=== PATIENT | female | born 1945 | race Caucasian/White ===

== ENCOUNTER → 2017-02-21 | Outpatient (CLI) | payer MEDICARE ==
[2017-02-21 09:58] LABS: ALT 40 U/L (9-52); AST 33 U/L (14-36); Alkaline Phosphatase 101 U/L (38-126); Anion Gap 15 mmol/L; Blood Urea Nitrogen 15 mg/dL (7-17); Calcium 9.9 mg/dL (8.4-10.2); Carbon Dioxide 19 mmol/L (22-30); Chloride 105 mmol/L (98-107); Cholesterol 169 mg/dL (<200); Glucose 180 mg/dL (74-99); HDL Cholesterol 67 mg/dL (40-60); Non-African American GFR(MDRD) >60 (>60 ml/min/1.73 sqM); Potassium 5.4 mmol/L (3.5-5.1); Sodium 139 mmol/L (137-145); Total Bilirubin 0.5 mg/dL (0.2-1.3); Total Protein 7.7 g/dL (6.3-8.2); Triglycerides 207 mg/dL (<150)
[2017-02-21 12:44] LABS: Hemoglobin A1C 7.3 % (4.2-6.1)
== END ==
LOC: LABWHC1 09:10
PROVIDERS: ATTEND Internal Medicine Endocrinology, Diabetes & Metabolism
DX: E05.00 Thyrotoxicosis with diffuse goiter without thyrotoxic crisis or storm (principal); E11.9 Type 2 diabetes mellitus without complications; E78.2 Mixed hyperlipidemia
CPT/HCPCS: 36415; 80053; 80061; 83036; 84439; 84443

== ENCOUNTER → 2017-03-25 | Outpatient (CLI) | payer MEDICARE ==
[2017-03-25 10:44] LABS: Anion Gap 12 mmol/L; Blood Urea Nitrogen 16 mg/dL (7-17); Calcium 9.9 mg/dL (8.4-10.2); Carbon Dioxide 21 mmol/L (22-30); Chloride 104 mmol/L (98-107); Glucose 154 mg/dL (74-99); Non-African American GFR(MDRD) >60 (>60 ml/min/1.73 sqM); Sodium 137 mmol/L (137-145)
== END | disposition home or self-care (01) ==
LOC: LABWHC1 10:06
PROVIDERS: ATTEND Internal Medicine Endocrinology, Diabetes & Metabolism
DX: E78.5 Hyperlipidemia, unspecified (principal)
CPT/HCPCS: 36415; 80048

== ENCOUNTER → 2017-06-12 | Outpatient (CLI) | payer MEDICARE ==
[2017-06-12 11:00] LABS: ALT 50 U/L (9-52); AST 32 U/L (14-36); Alkaline Phosphatase 101 U/L (38-126); Anion Gap 14 mmol/L; Blood Urea Nitrogen 14 mg/dL (7-17); Calcium 9.6 mg/dL (8.4-10.2); Carbon Dioxide 21 mmol/L (22-30); Chloride 105 mmol/L (98-107); Cholesterol 154 mg/dL (<200); Glucose 155 mg/dL (74-99); HDL Cholesterol 64 mg/dL (40-60); Non-African American GFR(MDRD) >60 (>60 ml/min/1.73 sqM); Potassium 4.9 mmol/L (3.5-5.1); Sodium 140 mmol/L (137-145); Total Bilirubin 0.4 mg/dL (0.2-1.3); Total Protein 7.1 g/dL (6.3-8.2); Triglycerides 190 mg/dL (<150)
[2017-06-12 12:07] LABS: Hemoglobin A1C 6.6 % (4.2-6.1)
== END | disposition home or self-care (01) ==
LOC: LABWHC1 09:15
PROVIDERS: ATTEND Internal Medicine Endocrinology, Diabetes & Metabolism
DX: E11.9 Type 2 diabetes mellitus without complications (principal); E03.9 Hypothyroidism, unspecified; E55.9 Vitamin D deficiency, unspecified; E78.2 Mixed hyperlipidemia; E87.5 Hyperkalemia
CPT/HCPCS: 36415; 80053; 80061; 82043; 82306; 82570; 83036; 84439; 84443

== ENCOUNTER → 2017-10-03 | Outpatient (CLI) | payer MEDICARE ==
[2017-10-03 10:57] LABS: ALT 52 U/L (9-52); AST 32 U/L (14-36); Alkaline Phosphatase 91 U/L (38-126); Anion Gap 14 mmol/L; Blood Urea Nitrogen 13 mg/dL (7-17); Carbon Dioxide 20 mmol/L (22-30); Chloride 105 mmol/L (98-107); Cholesterol 170 mg/dL (<200); Glucose 177 mg/dL (74-99); HDL Cholesterol 71 mg/dL (40-60); Non-African American GFR(MDRD) >60 (>60 ml/min/1.73 sqM); Potassium 5.3 mmol/L (3.5-5.1); Sodium 139 mmol/L (137-145); Total Bilirubin 0.4 mg/dL (0.2-1.3); Total Protein 7.7 g/dL (6.3-8.2)
[2017-10-03 18:34] LABS: Urine Creatinine 124.2 mg/dL
== END | disposition home or self-care (01) ==
LOC: LABWHC1 09:21
PROVIDERS: ATTEND Internal Medicine Endocrinology, Diabetes & Metabolism
DX: E11.9 Type 2 diabetes mellitus without complications (principal); E03.9 Hypothyroidism, unspecified
CPT/HCPCS: 36415; 80053; 80061; 82043; 82306; 82570; 83036; 84439; 84443

== ENCOUNTER → 2018-03-17 | Outpatient (CLI) | payer MEDICARE ==
--- NOTE | 2018-03-18 08:35 | BD ---
EXAMINATION TYPE: MG DEXA axial skeleton. DATE OF EXAM: 03/17/2018 COMPARISON: 2002 CLINICAL HISTORY: asymptomatic menopausal state Height: 5'3 Weight: 213 FRAX RISK QUESTIONS: Alcohol (3 or more units per day): no Family History (Parent hip fracture): no Glucocorticoids (More than 3mos): no (Ex: prednisone, prednisolone, methylprednisolone, dexamethasone, and hydrocortisone). History of Fracture in Adulthood: yes Secondary Osteoporosis: 1. Type 1 Diabetes: no 2. Hyperthyroidism: no 3. Menopause before 45: no 4. Malnutrition: no 5. Chronic liver disease: no Rheumatoid Arthritis: no Current Tobacco Use: no RISK FACTORS HISTORY OF: Surgery (/left)/hip When: total 2009 Family History of Osteoporosis: no Active: no Postmenopausal woman: MEDICATIONS: Thyroid Medications: Which medication: Levothyroxine How Lon Additional Medications: blood pressure, cholesterol, diabetes 2, glaucoma Additional History: EXAM MEASUREMENTS: Bone mineral densitometry was performed using the [employer]. Bone mineral density as measured about the Lumbar spine is: ----- L1-L4(G/cm2): 1.575 T Score Values are as follows: ----- L2: 3.8 ----- L3: 4.4 ----- L4: 3.8 ----- L1-L4:3.3 Bone mineral density has: Increased 37.7% since study of: 02/11/2003 Bone mineral density about the R hip (g/cm2): 0.806 T Score values are as follows: -----R Neck: -1.8 -----R Total: -1.6 Bone mineral density has: Decreased -1.5% since study of: 02/11/2003 IMPRESSION: Findings compatible with osteopenia NOTE: T-SCORE=SD OF THE YOUNG ADULT MEAN.
== END | disposition home or self-care (01) ==
LOC: RADBDWWP 15:29
PROVIDERS: ATTEND Family Medicine
DX: Z78.0 Asymptomatic menopausal state (principal)
CPT/HCPCS: 77080

== ENCOUNTER → 2018-03-19 | Outpatient (CLI) | payer MEDICARE ==
[2018-03-19 10:04] LABS: Basophils % (A) 1 %; Eosinophils # (A) 0.2 k/uL (0-0.7); Eosinophils % (A) 3 %; HCT 45.1 % (34.0-46.0); Lymphocytes # (A) 1.7 k/uL (1.0-4.8); Lymphocytes % (A) 24 %; MCH 28.4 pg (25.0-35.0); MCV 91.6 fL (80.0-100.0); Mean Platelet Volume 7.2; Monocytes # (A) 0.3 k/uL (0-1.0); Monocytes % (A) 5 %; Neutrophils # (A) 4.8 k/uL (1.3-7.7); Neutrophils % (A) 66 %; Platelet Count 281 k/uL (150-450); RBC 4.93 m/uL (3.80-5.40); RDW 13.9 % (11.5-15.5); WBC 7.2 k/uL (3.8-10.6)
[2018-03-19 10:21] LABS: ALT 43 U/L (9-52); AST 33 U/L (14-36); Albumin 4.3 g/dL (3.5-5.0); Alkaline Phosphatase 88 U/L (38-126); Anion Gap 16 mmol/L; Blood Urea Nitrogen 16 mg/dL (7-17); Calcium 9.7 mg/dL (8.4-10.2); Carbon Dioxide 20 mmol/L (22-30); Chloride 104 mmol/L (98-107); Cholesterol 145 mg/dL (<200); Glucose 155 mg/dL (74-99); HDL Cholesterol 62 mg/dL (40-60); LDL Cholesterol,Calculated 48 mg/dL (0-99); Potassium 4.4 mmol/L (3.5-5.1); Sodium 140 mmol/L (137-145); Total Bilirubin 0.4 mg/dL (0.2-1.3); Total Protein 6.7 g/dL (6.3-8.2); Triglycerides 173 mg/dL (<150)
[2018-03-19 10:35] LABS: T4, Free (Free Thyroxine) 1.27 ng/dL (0.78-2.19)
[2018-03-19 18:51] LABS: Hemoglobin A1C 6.9 % (4.0-6.0)
== END | disposition home or self-care (01) ==
LOC: LABWHC1 09:09
PROVIDERS: ATTEND Internal Medicine Endocrinology, Diabetes & Metabolism
DX: E78.2 Mixed hyperlipidemia (principal); E11.42 Type 2 diabetes mellitus with diabetic polyneuropathy; I10 Essential (primary) hypertension; E03.9 Hypothyroidism, unspecified; E55.9 Vitamin D deficiency, unspecified
CPT/HCPCS: 36415; 80053; 80061; 83036; 84439; 84443; 85025

== ENCOUNTER → 2018-09-29 | Outpatient (CLI) | payer MEDICARE ==
[2018-09-29 17:00] LABS: Albumin 4.7 g/dL (3.80-4.90); Albumin/Globulin Ratio 2.35 (1.20-2.10); Anion Gap 11.5 mmol/L (4.00-12.00); Calcium 9.5 mg/dL (8.7-10.3); Carbon Dioxide 21.5 mmol/L (21.6-31.8); Potassium 4.9 mmol/L (3.5-5.5); Total Bilirubin 0.5 mg/dL (0.3-1.2); Total Protein 6.7 g/dL (6.2-8.2)
[2018-09-29 17:08] LABS: T4, Free (Free Thyroxine) 1.6 ng/dL (0.80-1.80)
== END | disposition home or self-care (01) ==
LOC: LABWHC1 09:24
PROVIDERS: ATTEND Internal Medicine Endocrinology, Diabetes & Metabolism
DX: E78.2 Mixed hyperlipidemia (principal); E03.9 Hypothyroidism, unspecified; E11.9 Type 2 diabetes mellitus without complications; E55.9 Vitamin D deficiency, unspecified; I10 Essential (primary) hypertension; M89.9 Disorder of bone, unspecified
CPT/HCPCS: 36415; 80053; 80061; 82043; 82570; 83036; 84439; 84443

== ENCOUNTER → 2019-03-25 | Outpatient (CLI) | payer MEDICARE ==
[2019-03-25 16:26] LABS: Albumin 4.5 g/dL (3.80-4.90); Albumin/Globulin Ratio 2.37 (1.60-3.17); Anion Gap 12.8 mmol/L (4.00-12.00); Calcium 9.3 mg/dL (8.7-10.3); Carbon Dioxide 20.2 mmol/L (21.6-31.8); Globulin 1.9 g/dL (1.6-3.3); Potassium 4.5 mmol/L (3.5-5.5); Total Bilirubin 0.4 mg/dL (0.3-1.2); Total Protein 6.4 g/dL (6.2-8.2)
[2019-03-25 16:36] LABS: T4, Free (Free Thyroxine) 1.3 ng/dL (0.80-1.80)
== END ==
LOC: LABWHC1 09:05
PROVIDERS: ATTEND Internal Medicine Endocrinology, Diabetes & Metabolism
DX: E11.9 Type 2 diabetes mellitus without complications (principal); E03.9 Hypothyroidism, unspecified; E78.2 Mixed hyperlipidemia; E55.9 Vitamin D deficiency, unspecified
CPT/HCPCS: 36415; 80053; 80061; 83036; 84439; 84443

== ENCOUNTER → 2019-09-10 | Outpatient (CLI) | payer MEDICARE ==
[2019-09-10 15:46] LABS: African American GFR (CKD) 98.2 (60.0-200.0); Albumin 4.5 g/dL (3.80-4.90); Albumin/Globulin Ratio 2.25 (1.60-3.17); Anion Gap 11.5 mmol/L (4.00-12.00); BUN/Creat Ratio 24.29 Ratio (12.00-20.00); Calcium 9.5 mg/dL (8.7-10.3); Carbon Dioxide 23.5 mmol/L (21.6-31.8); Chol/HDL Ratio 2.41; LDL Cholesterol,Calculated 61.2 mg/dL (0.0-131.0); Total Bilirubin 0.4 mg/dL (0.2-1.2); Total Protein 6.5 g/dL (6.2-8.2); VLDL Calculation 24.8 mg/dL (5.00-40.00)
[2019-09-10 15:53] LABS: T4, Free (Free Thyroxine) 1.3 ng/dL (0.80-1.80)
[2019-09-10 17:36] LABS: Hemoglobin A1C 6.8 % (4.0-6.0)
== END | disposition home or self-care (01) ==
LOC: LABWHC1 08:49
PROVIDERS: ATTEND Internal Medicine Endocrinology, Diabetes & Metabolism
DX: E11.9 Type 2 diabetes mellitus without complications (principal); E03.9 Hypothyroidism, unspecified; E55.9 Vitamin D deficiency, unspecified; E78.2 Mixed hyperlipidemia
CPT/HCPCS: 36415; 80053; 80061; 82043; 82306; 82570; 83036; 84439; 84443

== ENCOUNTER 2020-06-19 07:47 | Emergency (ER) | payer MEDICARE, OTHER ==
[2020-06-19] MEDS ORDERED: DIPH,PERTUS(ACELL)TETVAC-LF 0.5 ML VIAL IM ONE (07:58)
[2020-06-19] MEDS ORDERED: TOPICAL SKIN ADHESIVE 1 EACH AMP TOPICAL ONE (07:58)
[2020-06-19 08:07] VITALS: TEMP 97.7
--- NOTE | 2020-06-19 09:06 | ED ---
Fall HPI - General Source: patient Mode of arrival: wheelchair <Clary Aguilar - Last Filed: 06/19/20 09:48> <MadiJohanna hansen Lani - Last Filed: 06/20/20 15:54> - General Chief Complaint: Fall Stated Complaint: Fall, facial injury Time Seen by Provider: 06/19/20 07:53 - History of Present Illness Initial Comments: 74 yo female presenting today for chief complaint of trip and fall. Patient states she was here at the hospital volunteering when she tripped falling forward striking her head. Patient does endorse some neck pain she states that she has pain in the left side of her forehead and was bleeding. Patient denies loss of consciousness she denies anticoagulation therapy. Patient denies any nausea vomiting headache visual changes weakness of the upper or lower extremities. Admits to pain the left lateral, knees was weight bearing and ambulating after the falls. States it is just sore. Denies ankle or hip pain denies low back pain or mid back pain. Denies right LE pain. Denies UE pain. Denies trauma to chest or abdomen. Patient has no additional complaint. Appears well on arrival. As soon as I heard patient was complaining of neck pain, requested a c-collar be placed. (Clary Aguilar) - Related Data Home Medications Medication Instructions Recorded Confirmed Atorvastatin Calcium [Lipitor] 20 mg PO HS 09/27/14 11/22/16 Dorzolamide HCl/Timolol Maleat 1 drop BOTH EYES BID 09/27/14 11/22/16 [Dorzolamide-Timolol Eye Drops] Exenatide [Byetta] 10 mcg SQ BID 09/27/14 11/22/16 Ezetimibe [Zetia] 10 mg PO HS 09/27/14 11/22/16 Metoprolol Succinate (ER) [Toprol 100 mg PO DAILY 09/27/14 11/22/16 XL] metFORMIN HCL [Metformin HCl ER] 500 mg PO AC-SUPPER 09/27/14 11/22/16 Glimepiride [Amaryl] 0.5 mg PO AC-SUPPER 03/17/15 11/22/16 Levothyroxine Sodium [Levoxyl] 75 mcg PO DAILY 03/17/15 11/22/16 Multivitamins, Thera [Multivitamin 1 tab PO DAILY 03/21/15 11/22/16 (formulary)] Diclofenac Sodium [Voltaren] 75 mg PO BID 11/22/16 11/22/16 Solifenacin Succinate [Vesicare] 5 mg PO DAILY 11/22/16 11/22/16 Previous Rx's Medication Instructions Recorded amLODIPine BESYLATE/BENAZEPRIL 1 tab PO HS #1 03/23/15 [Amlodipine-Benazepril 5-10 mg] Allergies Allergy/AdvReac Type Severity Reaction Status Date / Time iodine AdvReac Nausea & Verified 06/19/20 08:00 Vomiting shellfish derived [Shellfish] AdvReac Nausea & Verified 06/19/20 08:00 Vomiting Review of Systems ROS Other: All systems not noted in ROS Statement are negative. <Clary Aguilar - Last Filed: 06/19/20 09:48> ROS Other: All systems not noted in ROS Statement are negative. <Johanna Lopez - Last Filed: 06/20/20 15:54> ROS Statement: Those systems with pertinent positive or pertinent negative responses have been documented in the HPI. Past Medical History Past Medical History: Diabetes Mellitus, Hyperlipidemia, Hypertension, Thyroid Disorder Additional Past Medical History / Comment(s): TRIGEMINAL NEURALGIA. GLA History of Any Multi-Drug Resistant Organisms: None Reported Past Surgical History: Joint Replacement, Tonsillectomy Additional Past Surgical History / Comment(s): BILAT CATARACTS REMOVED. RT TKA. LT EMILY. BALLOON COMPRESSION OF TRIGEMINAL NERVE-1979. POSTERIOR CRANIOTOMY VASCULAR DECOMPRESSION,. VAGOTOMY,. PYLOROPLASTY Past Anesthesia/Blood Transfusion Reactions: No Reported Reaction Past Psychological History: No Psychological Hx Reported Smoking Status: Never smoker Past Alcohol Use History: Rare Past Drug Use History: None Reported - Past Family History Mother Family Medical History: Cancer Sister(s) Family Medical History: Cancer <Clary Aguilar - Last Filed: 06/19/20 09:48> General Exam Limitations: no limitations <Clary Aguilar - Last Filed: 06/19/20 09:48> - General Exam Comments Initial Comments: General: The patient is awake and alert, in no distress Eye: +3 mm right pupil difficult to see the left pupil secondary to corneal irregularity but appears reactive round,, extra-ocular movements are intact. No nystagmus. There is normal conjunctiva bilaterally. No signs of icterus. Ears, nose, mouth and throat: There are moist mucous membranes and no oral lesions. No raccoon or Chung sign Neck: The neck is supple, there is no tenderness or JVD. Midline tenderness to palpation of the cervical spine midline. Cardiovascular: There is a regular rate and rhythm. No murmur, rub or gallop is appreciated. Respiratory: Lungs are clear to auscultation, respirations are non-labored, breath sounds are equal. No wheezes, stridor, rales, or rhonchi. Gastrointestinal: Soft, non-distended, non-tender abdomen without masses or organomegaly noted. There is no rebound or guarding present. No CVA tenderness. Musculoskeletal: Pain to palpation of the left anterior knww. extensor mechanism intact. Normal ROM of the UE and LE b/l, pain to ROm with left knee mild. weight bearing. Strength 5/5 of the UE and LE equal b/l. Sensation intact of the UE and LE b/l. Radial and DP pulses equal bilaterally 2+. Neurological: A&O x 3. CN II-XII intact, There are no obvious motor or sensory deficits. Coordination appears grossly intact. Speech is normal. Skin: Skin is warm and dry and no rashes.. Large hematoma to the left side of the forehead with a very small bleeding superficial laceration. Psychiatric: Cooperative, appropriate mood & affect, normal judgment. (Clary Aguilar) Course Vital Signs 06/19/20 06/19/20 08:00 10:28 Temperature 97.7 F Pulse Rate 100 86 Respiratory 18 16 Rate Blood Pressure 148/82 132/76 O2 Sat by Pulse 95 99 Oximetry Medical Decision Making <Clary Aguilar - Last Filed: 06/19/20 09:48> <Johanna Lopez - Last Filed: 06/20/20 15:54> - Medical Decision Making 74 or female presenting for fall endorses for head pain neck pain placed in c- collar. No focal neurological deficits. No weakness of the UE. Patient has very very small point sized laceration in hematoma, closed with topical adhesive. Patient has a lucency at C2 cannot rule out type III fracture per radiologist. Patient will be transferred to facility with neurosurgery. Patient is agreeable to this care plan and transfer via EMS. Patient case accepted by Dr. Lazaro, at [facility]. (Clary Aguilar) I was available for consultation in the emergency department. The history and physical exam were done by the midlevel provider. I was consulted for this pat ients care. I reviewed the case with the midlevel provider and based on their presentation of the patient, I agree with the assessment, medical decision making and plan of care as documented. Chart was dictated using [employer] dictation software. Attempts were made to correct any dictation errors however some typographical errors may persist. Patient was seen during a national state of emergency due to the Covid-19 pandemic. (Johanna Lopez) Disposition Is patient prescribed a controlled substance at d/c from ED?: No Time of Disposition: 09:20 - Out of Hospital Transfer - Req. Specs Out of Hospital Transfer - Requested Specifics: Other Emergency Center ([facility] <Clary Aguilar - Last Filed: 06/19/20 09:48> <Johanna Lopez - Last Filed: 06/20/20 15:54> Clinical Impression: Fall, Traumatic hematoma of forehead, Abrasion of forehead, C2 cervical fracture, Neck pain Disposition: OTHER INSTITUTION NOT DEFINED Condition: Stable Referrals: Tod Del Valle MD [Primary Care Provider] - 1-2 days
--- NOTE | 2020-06-19 09:07 | CT ---
EXAMINATION TYPE: CT brain kamilleine wo con DATE OF EXAM: 06/19/2020 COMPARISON: None HISTORY: Fall with facial injury CT DLP: [address] of the brain was performed. The ventricles, basal cisterns and sulci overlying the cerebral convexities demonstrate minimal enlar gement. There is no evidence for intracranial hemorrhage or sulcal effacement. There is decreased attenuatio n about the periventricular white matter and deep white matter of both cerebral hemispheres, compatib le with chronic small vessel ischemia. No mass effects are seen. If symptoms persist consider MRI. Left occipital craniotomy changes. Left frontal scalp hematoma noted. Hyperostosis frontalis interna. IMPRESSION: 1. Age related atrophic and chronic small vessel ischemic change without acute intracranial process seen at this time. CT Cervical Spine: Unenhanced CT of the cervical spine was performed with bone and soft tissue window settings submitted . Coronal and sagittal reconstruction is obtained. There is streak artifact coursing through the C2 level. Noted on the sagittal data set however is cor tical lucency noted best on image 46 on the odontoid with additional cortical lucency identified on c oronal images 23 and 24. Type III odontoid fracture is difficult to exclude. There is a moderate to s evere multilevel degenerative disc disease. No additional fractures are seen. There is anterior sublu xation of C4 on C5 measuring 3.5 mm. This is related to suggest severe degenerative change of the cer vical apophyseal joints. Scattered degenerative disc disease and spondylosis. Biapical scarring. IMPRESSION: 1. I cannot exclude a type III C2 fracture as discussed above. As noted there is streak artifact cour sing through this region limiting evaluation however cortical lucency is identified in 2 planes. Discussed with the physician customer support assistant at the time of exam completion.
--- NOTE | 2020-06-19 09:27 | XR ---
EXAMINATION TYPE: XR knee complete LT DATE OF EXAM: 06/19/2020 COMPARISON: NONE HISTORY: Pain TECHNIQUE: Three views are submitted. FINDINGS: Postoperative changes. There is soft tissue edema anteriorly. No acute fracture or dislocation. Vascu lar calcifications noted. IMPRESSION: 1. Soft tissue edema and postoperative changes.
[2020-06-19 10:29] VITALS: BP 132/76; PULSE 86; RESP 16
== END 2020-06-19 10:28 | disposition other institution (70) ==
LOC: EC 07:47
DX: S12.100A Unspecified displaced fracture of second cervical vertebra, initial encounter for closed fracture (principal); S00.83XA Contusion of other part of head, initial encounter; M25.562 Pain in left knee; E11.9 Type 2 diabetes mellitus without complications; E78.5 Hyperlipidemia, unspecified; I10 Essential (primary) hypertension; E07.9 Disorder of thyroid, unspecified; Z79.84 Long term (current) use of oral hypoglycemic drugs; Z79.890 Hormone replacement therapy; Z79.899 Other long term (current) drug therapy; Z98.42 Cataract extraction status, left eye; Z98.41 Cataract extraction status, right eye; Z96.651 Presence of right artificial knee joint; Z96.642 Presence of left artificial hip joint; Z23 Encounter for immunization; Z91.041 Radiographic dye allergy status; Z91.013 Allergy to seafood; W01.10XA Fall on same level from slipping, tripping and stumbling with subsequent striking against unspecified object, initial encounter; Y92.239 Unspecified place in hospital as the place of occurrence of the external cause
CPT/HCPCS: 73562; 72125; 70450; 90715; 90471; 99284; L0120 ×2

== ENCOUNTER → 2020-08-01 | Outpatient (CLI) | payer MEDICARE ==
--- NOTE | 2020-08-01 10:59 | CT ---
EXAMINATION TYPE: CT cervical spine wo con DATE OF EXAM: 08/01/2020 COMPARISON: 06/19/2020 HISTORY: 06/19/2020 CT DLP: 417.9 mGycm CONTRAST: None CT of the cervical spine is performed in the axial plane at 2 mm thick sections. Reconstructed image s in the coronal, and sagittal plane are reviewed on the computer. There is an obvious lucency to the base of the dens. There appears to be nonunion at this time. Findi ngs compatible with an incompletely healed dens fracture. There is a lucency within the right pars region of C1. This may be a healing fracture as well. A seco nd ring fracture however is not identified. There is minimal anterolisthesis of C4 anteriorly on C5, present previously. There is loss of disc height C4-5 C5-6 C6-7. Posterior endplate spurring is noted C4-5 may be a minim al degree at C5-6. Vertebral body heights are preserved. No spinal canal stenosis is evident Foraminal stenosis is present on the right at C5-6. Milder foraminal narrowing may be present from un covertebral joint hypertrophy. Note is made of a punctate density at the left posterior apex measuring 0.3 cm. Series 4 image 78. Th is was present previously and is stable. Peripheral punctate nodularity is again evident at the poste rior medial right apex series 4 image 78. IMPRESSIONS: 1. Incomplete healing of the base of the dens fracture and possible fracture right C1 pars region. 2. No shift of the fracture fragments is evident. 3. Grade 1 spondylolisthesis of C4 anteriorly on C5, stable from comparison. 4. Degenerative disc changes mid cervical spine. 5. Punctate nodular density left lung apex.
== END | disposition home or self-care (01) ==
LOC: RADCTMAIN 09:05
PROVIDERS: ATTEND Nurse Practitioner Family
DX: M43.12 Spondylolisthesis, cervical region (principal); M50.30 Other cervical disc degeneration, unspecified cervical region; S12.120 Other displaced dens fracture
CPT/HCPCS: 72125

== ENCOUNTER → 2021-04-13 | Outpatient (CLI) | payer MEDICARE ==
[2021-04-13 15:38] LABS: African American GFR (CKD) 101.9 (60.0-200.0); Anion Gap 10.2 mmol/L (4.00-12.00); BUN/Creat Ratio 18.33 Ratio (12.00-20.00); Calcium 9.2 mg/dL (8.7-10.3); Carbon Dioxide 22.8 mmol/L (21.6-31.8); LDL Cholesterol,Calculated 38.4 mg/dL (0.0-131.0); Non-African American GFR(CKD) 87.9 (60.0-200.0); Potassium 4.9 mmol/L (3.5-5.5); VLDL Calculation 24.6 mg/dL (5.00-40.00)
[2021-04-13 15:47] LABS: T4, Free (Free Thyroxine) 1.2 ng/dL (0.80-1.80)
[2021-04-13 17:45] LABS: Hemoglobin A1C 6.6 % (4.0-6.0)
== END | disposition home or self-care (01) ==
LOC: LABWHC1 09:41
PROVIDERS: ATTEND Internal Medicine
DX: E11.9 Type 2 diabetes mellitus without complications (principal); E03.9 Hypothyroidism, unspecified; E55.9 Vitamin D deficiency, unspecified; Z20.9 Contact with and (suspected) exposure to unspecified communicable disease
CPT/HCPCS: 36415; 80048; 80061; 82306; 83036; 84439; 84443; 86803

== ENCOUNTER → 2021-07-11 | Outpatient (CLI) | payer MEDICARE ==
[2021-07-11 14:01] VITALS: BP 118/76; PULSE 92; RESP 18; TEMP 98.3
--- NOTE | 2021-07-11 14:03 | P.PAINCN ---
History of Present Illness - Reason for Consult Consult date: 07/11/21 - History of Present Illness This is a 75-year-old patient referred by Dr. Winn with a chief complaint of chronic pain in the low back. Has had RFA with Dr Hernandez in 08/2019 with > 80% relief which has lasted up until about a month ago. Dr Pa torres did an caudal JENN on 04/2021 with 100% relief of her leg pain but her back pain is now back. Pain is located in the low back with no radiation to lower extremities. She is significant stiffness in the low back worse in the morning and difficulty rising from a seated position. Pain is described as dull aching constant throughout the day. Made worse with activity and helped with her procedures that she had in the past as well as occasional tramadol. She also takes Celebrex 200 mg twice a day as needed. Physical therapy in the past which was marginally helpful but overall her radio frequency ablations and epidurals have been the most helpful thing for her. Patient denies adverse drug effects from medications. Patient also denies new- onset weakness, bowel/bladder incontinence, or any other signs or symptoms of cauda equina syndrome. There are no signs of acute intoxication, and no indications of medication diversion or overuse. In addition to above, 13-point review of systems is also negative for chest pain, shortness of breath, changes in vision, changes in hearing, new onset weakness, abdominal pain, diarrhea, extreme fatigue, malaise, fever, skin changes, homicidal or suicidal ideation, or bowel or bladder incontinence. Physical exam: Vital Signs: Reviewed in EMR GENERAL: Well appearing, in no acute distress PSYCH: Mood and affect is appropriate. Awake, alert, and oriented SKIN: Skin color, texture, turgor normal, no rashes or lesions HEENT: Normocephalic, atraumatic. EOM intact CV: No pedal edema RESP: Respirations are unlabored, no audible wheezing GI: Abdomen non-distended MUSCULOSKELETAL: 3/5 plantarflexion bilaterally. Otherwise intact. No atrophy or tone abnormalities are noted. Lumbar spine: Straight leg raising in the sitting position is negative for radicular pain. pain to palpation over the lumbar spine and paraspinous muscles positive for pain with facet loading and back extension/rotation. Intact flexion, significantly decreased extension Extremities: Peripheral joint ROM is full and pain free without obvious instability or laxity in all four extremities. No edema or skin discolorations noted. Gait: Gait is normal NEUR: Bilateral upper and lower extremity coordination and muscle stretch reflexes are physiologic and symmetric. Negative clonus. No loss of sensation is noted. Cranial nerves are grossly intact. Imaging: Lumbar MRI Show severe degenerative disc disease from L1 through L5. At L2-3 there is moderately severe stenosis of the spinal canal. At L4-L5 there is moderately severe stenosis of the spinal canal with severe right and moderate left stenosis. There is also severe bilateral facet joint arthropathy at this level. L5-S1 there is moderate bilateral facet joint arthropathy and severe left and moderate right neural foraminal stenosis. Assessment: 1. Lumbar spondylosis Plan: - Schedule bilateral L4-L5 and L5-S1 radiofrequency ablation. In the future if she is having continued leg pain we can repeat caudal epidural steroid injection for her. - we also gave her a flyer for some home exercises she can work on at home. I spent 44 minutes on patient care today. The time was used to review medical records including relevant urine studies and prescription history (MAPs), review of the available imaging, evaluation and examination the patient, coordination of care at the medical staff and if applicable referring physicians, as well as creation of the medical record. Past Medical History Past Medical History: Diabetes Mellitus, Hyperlipidemia, Hypertension, Thyroid Disorder Additional Past Medical History / Comment(s): TRIGEMINAL NEURALGIA. GLA History of Any Multi-Drug Resistant Organisms: None Reported Past Surgical History: Joint Replacement, Tonsillectomy Additional Past Surgical History / Comment(s): BILAT CATARACTS REMOVED. RT TKA. LT EMILY. BALLOON COMPRESSION OF TRIGEMINAL NERVE-1979. POSTERIOR CRANIOTOMY VASCULAR DECOMPRESSION,. VAGOTOMY,. PYLOROPLASTY Past Anesthesia/Blood Transfusion Reactions: No Reported Reaction Past Psychological History: No Psychological Hx Reported Smoking Status: Never smoker Past Alcohol Use History: Rare Past Drug Use History: None Reported - Past Family History Mother Family Medical History: Cancer Sister(s) Family Medical History: Cancer Medications and Allergies Home Medications Medication Instructions Recorded Confirmed Type Atorvastatin Calcium [Lipitor] 20 mg PO HS 09/27/14 11/22/16 History Dorzolamide HCl/Timolol Maleat 1 drop BOTH EYES BID 09/27/14 11/22/16 History [Dorzolamide-Timolol Eye Drops] Exenatide [Byetta] 10 mcg SQ BID 09/27/14 11/22/16 History Ezetimibe [Zetia] 10 mg PO HS 09/27/14 11/22/16 History Metoprolol Succinate (ER) [Toprol 100 mg PO DAILY 09/27/14 11/22/16 History XL] metFORMIN HCL [Metformin HCl ER] 500 mg PO AC-SUPPER 09/27/14 11/22/16 History Glimepiride [Amaryl] 0.5 mg PO AC-SUPPER 03/17/15 11/22/16 History Levothyroxine Sodium [Levoxyl] 75 mcg PO DAILY 03/17/15 11/22/16 History Multivitamins, Thera [Multivitamin 1 tab PO DAILY 03/21/15 11/22/16 History (formulary)] amLODIPine BESYLATE/BENAZEPRIL 1 tab PO HS #1 03/23/15 11/22/16 Rx [Amlodipine-Benazepril 5-10 mg] Diclofenac Sodium [Voltaren] 75 mg PO BID 11/22/16 11/22/16 History Solifenacin Succinate [Vesicare] 5 mg PO DAILY 11/22/16 11/22/16 History Allergies Allergy/AdvReac Type Severity Reaction Status Date / Time iodine AdvReac Nausea & Verified 06/19/20 08:00 Vomiting shellfish derived [Shellfish] AdvReac Nausea & Verified 06/19/20 08:00 Vomiting Physical Exam Vitals: Intake and Output 07/10/21 07/11/21 07/11/21 22:59 06:59 14:59 Other: Weight 86.183 kg PQRS Measure Charge Sheet PQRS Narrative: Smoking Status Never smoker Home Medications: Ambulatory Orders Atorvastatin Calcium [Lipitor] 20 mg PO HS 09/27/14 Dorzolamide HCl/Timolol Maleat [Dorzolamide-Timolol Eye Drops] 1 drop BOTH EYES BID 09/27/14 Exenatide [Byetta] 10 mcg SQ BID 09/27/14 Ezetimibe [Zetia] 10 mg PO HS 09/27/14 Metoprolol Succinate (ER) [Toprol XL] 100 mg PO DAILY 09/27/14 metFORMIN HCL [Metformin HCl ER] 500 mg PO AC-SUPPER 09/27/14 Glimepiride [Amaryl] 0.5 mg PO AC-SUPPER 03/17/15 Levothyroxine Sodium [Levoxyl] 75 mcg PO DAILY 03/17/15 Multivitamins, Thera [Multivitamin (formulary)] 1 tab PO DAILY 03/21/15 amLODIPine BESYLATE/BENAZEPRIL [Amlodipine-Benazepril 5-10 mg] 1 tab PO HS #1 03/23/15 Diclofenac Sodium [Voltaren] 75 mg PO BID 11/22/16 Solifenacin Succinate [Vesicare] 5 mg PO DAILY 11/22/16
== END ==
LOC: PNWHC3 13:22
PROVIDERS: ATTEND Anesthesiology
DX: M47.22 Other spondylosis with radiculopathy, cervical region (principal); G89.29 Other chronic pain; Z79.891 Long term (current) use of opiate analgesic; Z87.891 Personal history of nicotine dependence
CPT/HCPCS: 99211

== ENCOUNTER 2021-08-24 08:48 | Day surgery (SDC) | payer MEDICARE ==
[2021-08-23 10:32] VITALS: BMI 33.6
[2021-08-24 09:14] VITALS: RESP 16; TEMP 97.1
[2021-08-24] MEDS: LACTATED RINGERS 1,000 ML IV SCH ×2 (09:30→09:33)
[2021-08-24 09:33] LABS: Glucose,Whole Blood 156 mg/dL (75-99)
[2021-08-24] MEDS ORDERED: ROPIVACAINE 5MG/ML 20ML VIAL ONE (09:35)
[2021-08-24] MEDS ORDERED: fentaNYL (PF) 50 MCG/ML 2 ML AMP ONE (09:35)
[2021-08-24] MEDS ORDERED: MIDAZOLAM 2 MG/2 ML VIAL ONE (09:35)
--- NOTE | 2021-08-24 10:21 | P.PCN ---
Date of Procedure: 08/24/21 Procedure(s) Performed: PREOPERATIVE DIAGNOSIS: 1-Lumbar Spondylosis with Facet Arthropathy without myelopathy. 2- Lumber degenerative disc disease. POSTOPERATIVE DIAGNOSIS: 1- Lumbar Spondylosis with Facet Arthropathy without myelopathy. 2- Lumber degenerative disc disease. PROCEDURES : Bilateral Radiofrequency thermocoagulation, L3 , L4 , and L5 medial branch, with fluoroscopic guidance (fluoroscopy images available in the radiology department) ( to denervate the facet joint at Bilateral L4-5 ,and L5-S1 levels ). ANESTHESIA: Monitered anesthesia care ,as per anesthesia department . EBL: Minimal PROCEDURE INDICATION: The patient with low back pain secondary to lumbar facet arthropathy who had more than 50% relief of her pain with previous diagnostic lumbar medial branch block with bupivacaine. PROCEDURE DESCRIPTION / TECHNIQUE: The patient was seen and identified in the preoperative area. Risks, benefits, complications, including but not limited to risk of infection ,bleeding , allergic reactions to the medications and no complete pain releife , and alternatives were discussed with the patient, the patient agreed to proceed with the procedure and signed the consent. IV was started. Vital signs remained stable throughout the procedure. Patient was taken to the OR and time out was completed. The patient was placed in the prone position on the procedure table. The lumber area was prepped and draped in the usual sterile fashion. . Vital signs were closely monitored during the procedure .IV sedation was used during the procedure to decrease patients anxiety. Using AP and then oblique fluoroscopy, the ``eye of the Candido dog co rresponding to the connection between the superior and transverse articular processes of right L3, L4, and L5 were identified, marked, and localized with 1% lidocaine. Subsequently, a [id number] radiofrequency cannula with a 10- mm active tip was advanced guided by fluoroscopy to each of the``eyes of the Candido dog at right L3, L4, and L5. Each site then underwent sensory testing at 50 Hz and 0 to 1 volt and motor testing at 2.5 Hz and 0 to 3 volt with local stimulation, but no radicular symptoms down the legs. Thereafter each sites underwent radiofrequency thermocoagulation at 80 degrees celsius for 90 seconds after injecting 0.5 ml of PF Ropivacaine 1ml, then after the thermocoagulation done , 1 ml of the block solution containting 3 ml of Ropivacaine 0.5% was injected at the right L3 , L4 , and L5 , levels after negative aspiration of CSF and blood and with no paresthesias. Cannulas were retracted while injecting lidocaine 1% until the needle is out. The same procedure was repeated at the level of Left L3, L4, and L5 levels. At the end of the procedure, the skin was cleansed and bandages were applied. COMPLICATIONS: No acute complications. DISPOSITION / PLANS: The patient was placed in a supine position and transferred to the recovery area in a stable condition for observation and was discharged from the recovery room after meeting discharge criteria. Home discharge instructions given to the patient by the staff. The patient was reexamined prior to discharge. The patient will schedule a follow up in the clinic in 2-4 weeks. note= no steroid was used for the procedure today
[2021-08-24] MEDS ORDERED: IV FLUID CONTINUATION 500 ML IV ONE (10:22)
[2021-08-24 11:11] VITALS: BP 128/76; PULSE 88
--- NOTE | 2021-08-24 11:16 | FL ---
Fluoroscopy HISTORY: Pain 25 seconds fluoroscopy time supplied to the referring clinician. 6 intraoperative C-arm images docum ent the procedure. See dictated report from anesthesia.
== END 2021-08-24 11:11 | disposition home or self-care (01) ==
LOC: ORPAIN 08:48
PROVIDERS: ATTEND Specialist
DX: M47.816 Spondylosis without myelopathy or radiculopathy, lumbar region (principal)
CPT/HCPCS: 64635; 64636; J2250; J3010; J2795

== ENCOUNTER → 2021-09-17 | Outpatient (CLI) | payer MEDICARE ==
[2021-09-17 14:33] VITALS: BP 153/80; PULSE 102; RESP 18; TEMP 98.2
--- NOTE | 2021-09-17 15:20 | P.PAINPG ---
Subjective Progress Note Date: 09/17/21 Principal diagnosis: Lumbar back pain, and mid thoracic pain Mrs. Olmedo is a 75 year old pleasant female patient came to [facility] pain management clinic for follow-up, and postprocedure evaluation. Patient had bilateral lumbar L4-L5, and L5-S1 frequency ablation on 08/24/2021 . Per patient her lumbar back pain levels are 2-3 , which is tolerable . She is able to perform her activities without any difficulty and lumbar area pain olguin. But she is complaining of midthoracic area pain on the right side for many years . 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 Patient described pain as aching, sharp, throbbing, type of pain. Patient rated pain 5 out of 10 in severity. Which may very her pain level from 4-8 out of 10 in severity. Pain increases with activities, and standing, walking, sitting, bending forward, and lifting. Pain decreases with interventional procedures, exercises. Overall patient activities stable. Because of the pain patient is feeling lack of sleep and interest and energy. Denied any bowel or bladder problems. Patient denies any adverse effects to medications. Not using any walking aids for walking. Patient denied any suicidal / homicidal tendency at this time. There are no signs of narcotic diversion/misuse/overuse and no new- onset weakness, bowel/bladder incontinence, saddle anesthesia, or no red flag symptoms. 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 Sensation grossly intact Lower extremity: Normal strength, and decreased range of motion secondary to pain Lumbar spine: Paravertebral tenderness: positive Lumbar facet load test : positive Sacroiliac joint tenderness: Negative Multiple trigger points positive over right side mid thoracic area below the scapula - Constitutional Constitutional Comment(s): 12 point review of symptoms negative except as mentioned in the history of present illness Assessment and Plan Assessment: Lumbar spondylosis without myelopathy Myofascial pain syndrome, lumbar, and right-sided midthoracic area Plan: #1 Diagnoses, prognosis, and multiple treatment options including but not limited to physical therapy, interventional therapy, adjunct medication therapy, narcotic medication, and surgical options were discussed with the patient. And all questions were answered to the patient's satisfaction. #2 treatment plan agreement : Patient was thoroughly discussed regarding the treatment options, alternatives, and importance of exercises as tolerated. Patient clearly understood. #3 Patient was counseled on importance of regular exercise. Including amber chi, aerobic exercises as tolerated. Which helps for chronic pain, and overall well- being. #4 investigations: MAPS- reviewed , urine drug test-not done #5 diagnostic tests: None #6 consultation : Physical therapy exercises # 7 interventional procedures: Right-sided midthoracic trigger point injections. Procedure, complications, alternatives discussed with the patient. #8 medications No medications from the pain clinic #9 morphine milligrams equivalents dose ( MME) per day: 0 from pain clinic. # 10 patient recommended to use percussion massage device #11 disposition: scheduled to follow up with pain clinic in 4 weeks duration. Time with Patient: Less than 30 PQRS Measure Charge Sheet Measure #130: Documentation of Current Meds in Medical Chart: Patient's medications documented in chart Measure #226: Tobacco Use: Screen & Cessation Intervention: Pt not a tobacco user Measure #111: Pneumonia Vaccination: Pneumococcal vaccine administered or previ ously received Measure #47: Advance Care Plan: Advance care planning discussed & documented, plan or surrogate given Measure #412: Opioid Treatment Agreement: No documentation of signed opioid treatment agreement Measure #408: Opioid Therapy Follow-up Evaluation: Patient had NO f/u eval minimum every 3 months during opioid therapy Measure #317: Preventitive Care & Scrn High Bld Press & F/U: Pre-hypertensive or hypertensive BP documented, pt will f/u with PCP Measure #128: Body Mass Index (BMI) Screening & Follow-up: BMI documented ABOVE normal parameters - f/u documented Measure #131: Pain Assessment & Follow-up: Pain positive & plan documented Measure #431: Unhealthy Alcohol Use Preventative Care & Scrn: Patient not identified as an unhealthy alcohol user Mode of Arrival: Cane - Pain Location Right Upper Back Non-Pharmacological Interventions: Inactivity Pharmacological Interventions: Medication, PRN Medication PQRS Narrative: Smoking Status Never smoker Blood Pressure 153/80 Pain Intensity [Right Upper 7 Back] Pain Intensity [Left Lower 0 Back] Scale Used Numeric (1 - 10) Hx Alcohol Use (MH) No Home Medications: Ambulatory Orders Atorvastatin Calcium [Lipitor] 20 mg PO HS 09/27/14 Dorzolamide HCl/Timolol Maleat [Dorzolamide-Timolol Eye Drops] 1 drop BOTH EYES BID 09/27/14 Metoprolol Succinate (ER) [Toprol XL] 100 mg PO DAILY 09/27/14 metFORMIN HCL [Metformin HCl ER] 1,500 mg PO AC-SUPPER 09/27/14 Glimepiride [Amaryl] 0.5 mg PO AC-SUPPER 03/17/15 Multivitamins, Thera [Multivitamin (formulary)] 1 tab PO DAILY 03/21/15 Celecoxib [CeleBREX] 200 mg PO BID 07/11/21 Latanoprost Ophth [Xalatan 0.005%] 1 drop BOTH EYES DAILY 07/11/21 Levothyroxine Sodium [Synthroid] 88 mcg PO DAILY 07/11/21 traMADol HCl [Ultram] 50 mg PO TID PRN 07/11/21 Exenatide Microspheres [Bydureon Bcise Auto-Injector] 2 mg SQ LATIF 08/23/21 amLODIPine BESYLATE/BENAZEPRIL [Amlodipine-Benazepril 5-10 mg] 1 tab PO BID 08/23/21 Controlled Substance Measures - Controlled Substance Measures Is patient prescribed a controlled substance at discharge?: No
== END ==
LOC: PNWHC3 13:57
DX: M47.816 Spondylosis without myelopathy or radiculopathy, lumbar region (principal); M79.18 Myalgia, other site; Z91.013 Allergy to seafood
CPT/HCPCS: 99211

== ENCOUNTER → 2021-10-16 | Outpatient (CLI) | payer MEDICARE ==
[2021-10-16 20:25] LABS: Chol/HDL Ratio 2.51 Ratio; LDL Cholesterol,Calculated 61.3 mg/dL (0.0-131.0)
== END | disposition home or self-care (01) ==
LOC: LABWHC1 09:47
PROVIDERS: ATTEND Internal Medicine
DX: E11.9 Type 2 diabetes mellitus without complications (principal)
CPT/HCPCS: 36415; 80061; 83036

== ENCOUNTER 2021-10-25 12:05 | Day surgery (SDC) | payer MEDICARE ==
[2021-10-23 15:40] VITALS: BMI 33.6
[2021-10-25 12:33] VITALS: TEMP 97.6
[2021-10-25] MEDS ORDERED: LACTATED RINGERS 1,000 ML IV ONE (12:44)
[2021-10-25 12:47] LABS: Glucose,Whole Blood 145 mg/dL (75-99)
[2021-10-25] MEDS ORDERED: methylPREDNISolone ACETATE 40 MG/ML 1 ML VIAL ONE (13:18)
[2021-10-25] MEDS ORDERED: .fentaNYL (PF) 50 MCG/ML AMP ONE (13:18)
[2021-10-25] MEDS ORDERED: ROPIVACAINE 5MG/ML 20ML VIAL ONE (13:18)
[2021-10-25] MEDS ORDERED: MIDAZOLAM 2 MG/2 ML VIAL ONE (13:18)
--- NOTE | 2021-10-25 13:42 | P.PCN ---
Date of Procedure: 10/25/21 Description of Procedure: Pre and postop diagnosis: Myofascial pain syndrome Procedure: Trigger point injections X 9 Muscle group -right side trapezius, paraspinal Surgeon: Ramiro Matthew Anesthesia: Versed, and fentanyl Complications: None Estimated blood loss: None Specimen removed: None Procedure indications: Patient had a history of myofascial pain syndrome. Patient tried conservative therapy. Came here for intervention procedure for better pain relief. Procedure description: Patient was seen and identified in the holding area risk benefits competitions alternative discussed with the patient. Patient agreed to proceed for the procedure signed the consent. Patient taken to the procedure area. Timeout was completed. A total number of 9 - trigger point area was marked with a sterile marker. After ChloraPrep used to clean the area. Critical pause was taken. Using 25-gauge 1-1/2 inch needle bended half way. Needle entered in each market site 2 mL of block solution injected at each level. The block solution containing 18ml of 0.5% preservative-free ropivacaine with Depo-Medrol 40 MG. Needle removed intact skin cleaned and Band-Aid applied. Patient tolerated the procedure well. Disposition: Patient discharge home after meeting the discharge criteria from the recovery. Patient scheduled to follow up with the pain clinic in 4 weeks for follow-up visit.
[2021-10-25] MEDS ORDERED: IV FLUID CONTINUATION 750 ML IV ONE (13:45)
[2021-10-25] MEDS ORDERED: LACTATED RINGERS 1,000 ML IV SCH (13:45)
[2021-10-25 13:57] VITALS: RESP 20
[2021-10-25 14:15] VITALS: BP 142/70; PULSE 90
== END 2021-10-25 14:23 | disposition home or self-care (01) ==
LOC: ORPAIN 12:05
DX: M79.18 Myalgia, other site (principal)
CPT/HCPCS: 20552; J2250; J1030; J3010; J2795; 99152

== ENCOUNTER → 2021-11-21 | Outpatient (CLI) | payer MEDICARE ==
[2021-11-21 14:46] VITALS: BP 155/92; PULSE 101; RESP 18; TEMP 98.3
--- NOTE | 2021-11-21 15:11 | P.PN ---
Subjective Progress Note Date: 11/21/21 This is a follow-up visit for this 76 years old female with a chronic history of severe low back pain and mid back pain and upper back pain, diagnosed with lumbar degenerative disc disease and lumbar spondylosis with lumbar facet arthropathy, myofascial pain syndrome thoracic and lumbar area,previousely we have done RFA of the medial branch lumbar area, that helped her low back pain significantly , and recently we did trigger point injection thoracic scapular and lumbar area, reported that the last procedure helped her pain significantly , she feels no pain in the thoracic or upper back area, denies any motor or sensory deficit Objective - Vital Signs Vital signs: Vital Signs Temp 98.3 F 11/21/21 14:36 Pulse 101 H 11/21/21 14:36 Resp 18 11/21/21 14:36 BP 155/92 11/21/21 14:36 Pulse Ox 96 11/21/21 14:36 - Exam Physical Examinations : -Constitutiona : Cooperative , not in acute distress . -HEENT : nech : supple , no Lymphadenopathy , normal thyroid size . : eyes : no ptosis , no icterus, no photophobia . - neurologic : Cranial nerve II to XII intact , no focal neurological deffecit . -psychatric : alert , oriented X 3 , appropriate affect , intact judgment and insight . -Lymphatic : no Lymphadenopathy . - musculoskeltal : Cervical Spine motor stregnth in the deltoid and biceps, normal right side , normal Left side motor stregnth biceps and the wrist extensors normal right side ,normal left side . motor stregnth in the triceps muscle . normal Right side , normal Left side Assessment and Plan Plan: Assessment and plan=1-lumbar spondylosis with lumbar facet arthropathy without myelopathy. 2-lumbar degenerative disc disease. 3-myofascial pain syndrome. Pain improved after RFA of the medial branch lumbar area and after trigger point injection She will follow-up when necessary Time with Patient: Less than 30
== END ==
LOC: PNWHC3 14:12
PROVIDERS: ATTEND Specialist
DX: M47.816 Spondylosis without myelopathy or radiculopathy, lumbar region (principal); M51.36 Other intervertebral disc degeneration, lumbar region; M79.18 Myalgia, other site; Z91.013 Allergy to seafood
CPT/HCPCS: 99211

== ENCOUNTER → 2022-04-19 | Outpatient (CLI) | payer MEDICARE ==
[2022-04-19 14:59] LABS: African American GFR (CKD) 96.2 (60.0-200.0); BUN/Creat Ratio 15.71 Ratio (12.00-20.00); Calcium 9.4 mg/dL (8.7-10.3); Carbon Dioxide 18.8 mmol/L (20.0-27.5); Chloride 102 mmol/L (96-109); Chol/HDL Ratio 2.27 Ratio; Glucose 212 mg/dL (70-110); LDL Cholesterol,Calculated 60.1 mg/dL (0.0-131.0); Potassium 5.3 mmol/L (3.5-5.5); Sodium 136 mmol/L (135-145)
== END | disposition home or self-care (01) ==
LOC: LABWHC1 08:42
PROVIDERS: ATTEND Nurse Practitioner
DX: I10 Essential (primary) hypertension (principal); E11.9 Type 2 diabetes mellitus without complications; E78.2 Mixed hyperlipidemia
CPT/HCPCS: 36415; 80048; 80061; 82043; 82570; 83036; 84439; 84443

== ENCOUNTER → 2022-05-08 | Outpatient (CLI) | payer MEDICARE ==
--- NOTE | 2022-05-08 09:27 | P.PAINPG ---
PQRS Measure Charge Sheet Comment: A 76 yr old female with a history of severe and chronic low back pain secondary x 50 yrs to lumbar degenerative disc diseases and lumbar spondylosis with facet arthropathy and recent lumbar RFA history presents today for evaluation of LBP. Pain is in her mid back with radiation towards the lumbar spine, pain level is currently at 7/10 in intensity, throbbing in charcter in the mid spine with sharp/ shooting up and down the spine, and also intermittent. Pain is provoked by stress, overhead reaching and lifting. Pain is alleviated with PT 3 yrs ago, home based exercise regimen occasionally, medications (Tramadol, Celebrex, Tylenol Arthritis OTC), laying supine, repositioning and rest. Interventional pain procedures completed include BL RFA L3-L5, Thoracic TPIs. Patient is currently on Tylenol Arthritis OTC, Tramadol, Celebrex. Patient denies any side effects of the medication(s), denies excessive drowsiness or sleepiness, denies suicidal ideation and reports that the current pain medication is helping to control the pain and improve activities of daily living. Patient denies any motor or sensory deficits. Patient denies any fever or night sweats, denies any change in the bowel movements or urination. Physical Examination: -Constitutional: Cooperative. Not in acute distress . -HEENT: Neck is supple. No lymphadenopathy. No thyromegaly. Normal thyroid size. Eyes: No ptosis , no icterus, no photophobia. ENT: No auditory deficits. Normal oropharynx. No Thrush. - Respiratory: Chest clear to auscultations bilaterally. No wheezing. No rhonchi. - Cardiovascular: Regular rate and rhythm. S1 / S2 , no S3 , no S4. - Gastrointestinal: Abdomen soft no tenderness. Bowel sounds positive in all four quadrants. No organomegaly. - Genitourinary: Deferred. - Neurologic: Cranial nerve II to XII intact. No focal neurological deficits. - Psychatric: Alert & oriented x 3. Matching mood & appropriate affect. Judgment and insight intact. - Lymphatic: No Lymphadenopathy. - Musculoskeletal: Cervical spine: Muscle bulk/ tone/ strength in the bilateral upper extremities normal Vertebral body tenderness to palpation over Facet loading test positive Thoracic spine Muscle bulk / tone/ strength in the bilateral paraspinal muscles normal Vertebral body tender to palpation over Facet loading test positive Lumbar spine: Motor bulk/ tone/ strength lower extremities , thigh and legs : 5/5 Deep tendon reflexes : Normal Knee Jerk. Normal Ankle Jerk . Vertebral body tenderness to palpation over L2, L3, L4, L5 Lumbar Facet Loading Test positive Straight Leg Raise: positive at 30 degrees right side/ left side Gaenslen's Test positive Sacral spine : Severe tenderness over the Sacroiliac joint: right side / left side Range of motion: Flexion of the lumbar spine <60 degrees Range of motion: Extension of the lumbar spine <20 degrees Gaenslen's Test positive Jacek's Test positive Ela test: positive right side / left side Thigh Thrust Test Sacral Thrust Test Assessment and plan: Chronic low back pain secondary to lumbar degenerative disc disease , lumbar spondylosis with facet arthropathy without myelopathy Recommendation of physical therapy integrated with massage, 3 times per week 6 weeks re: M51.36 Pt may return to our clinic within 4-6 weeks for reevaluation and discussion of further treatment options, if necessary. Risks, benefits of procedure discussed and pt verbalized understanding. Denies anticoagulant use or medical history of diabetes. All patient questions answered MAPS reviewed and it was appropriate. I have spent 31 minutes on patient care today. Dr Dennison was available by sukhi alfredo for the evaluation of this patient. The time was used to review the medical records including relevant urine studies and Prescription history (MAPs), review of the available imaging, evaluation and examination of the patient, coordination of care with the medical staff and if applicable referring physicians, as well as creation of the medical record PQRS Narrative: Smoking Status Never smoker Hx Alcohol Use (MH) No Home Medications: Ambulatory Orders Atorvastatin Calcium [Lipitor] 20 mg PO HS 09/27/14 Dorzolamide HCl/Timolol Maleat [Dorzolamide-Timolol Eye Drops] 1 drop BOTH EYES BID 09/27/14 Metoprolol Succinate (ER) [Toprol XL] 100 mg PO DAILY 09/27/14 metFORMIN HCL [Metformin HCl ER] 1,500 mg PO AC-SUPPER 09/27/14 Multivitamins, Thera [Multivitamin (formulary)] 1 tab PO DAILY 03/21/15 Celecoxib [CeleBREX] 200 mg PO BID 07/11/21 Latanoprost Ophth [Xalatan 0.005%] 1 drop BOTH EYES DAILY 07/11/21 Levothyroxine Sodium [Synthroid] 88 mcg PO DAILY 07/11/21 traMADol HCl [Ultram] 50 mg PO TID PRN 07/11/21 Exenatide Microspheres [Bydureon Bcise Auto-Injector] 2 mg SQ LATIF 08/23/21 amLODIPine BESYLATE/BENAZEPRIL [Amlodipine-Benazepril 5-10 mg] 1 tab PO BID 08/23/21 Controlled Substance Measures - Controlled Substance Measures Is patient prescribed a controlled substance at discharge?: No
[2022-05-08 09:37] VITALS: BP 136/83; PULSE 96; RESP 18; TEMP 98.1
== END ==
LOC: PNWHC3 08:40
PROVIDERS: ATTEND Specialist
DX: M51.36 Other intervertebral disc degeneration, lumbar region (principal); M47.816 Spondylosis without myelopathy or radiculopathy, lumbar region; G89.29 Other chronic pain; Z91.013 Allergy to seafood
CPT/HCPCS: 99211

== ENCOUNTER → 2022-07-10 | Outpatient (CLI) | payer MEDICARE ==
[2022-07-10 10:31] VITALS: BP 133/88; PULSE 96; RESP 18; TEMP 98.1
--- NOTE | 2022-07-10 14:45 | P.PAINPG ---
PQRS Measure Charge Sheet Comment: A 76 yr old female with a history of severe and chronic mid to low back pain secondary to thoracolumbar degenerative disc diseases and spondylosis with facet arthropathy presents today for an evaluation. Pain level is currently at 7/10 in intensity, constant, localized in the R mid thoracic region, dull/ achy in character w pain shooting towards the R shoulder. Pain is provoked by repetitive movements. Pain is alleviated with PT x 6 wks which she completed this month, medications (Celebrex, Tramadol), injections, use of a cane for ambulation, repositioning and rest. Interventional pain procedures completed include R mid thoracic TPIs, BL RFA L3- L5. Patient is currently on Celebrex, Tramadol. Patient denies any side effects of the medication(s), denies excessive drowsiness or sleepiness, denies suicidal ideation and reports that the current pain medication is helping to control the pain and improve activities of daily living. Patient denies any motor or sensory deficits. Patient denies any fever or night sweats, denies any change in the bowel movements or urination. Physical Examination: -Constitutional: Cooperative. Not in acute distress . - Neurologic: Cranial nerve II to XII intact. No focal neurological deficits. - Psychatric: Alert & oriented x 3. Matching mood & appropriate affect. Judgment and insight intact. - Musculoskeletal: Cervical spine: Muscle bulk/ tone/ strength in the bilateral upper extremities normal Vertebral body tenderness to palpation over Spurling test positive Distraction test positive Facet loading test positive Thoracic spine Muscle bulk / tone/ strength in the bilateral paraspinal muscles normal. Tenderness/ Spasms over R Trapezius & mid thoracic paraspinals Vertebral body tender to palpation over Facet loading test positive Lumbar spine: Motor bulk/ tone/ strength lower extremities , thigh and legs : 5/5 Deep tendon reflexes : Normal Knee Jerk. Normal Ankle Jerk . Vertebral body tenderness to palpation over Lumbar Facet Loading Test positive Straight Leg Raise: positive at 30 degrees right side/ left side Gaenslen's Test positive Sacral spine : Severe tenderness over the Sacroiliac joint: right side / left side Range of motion: Flexion of the lumbar spine <60 degrees Range of motion: Extension of the lumbar spine <20 degrees Gaenslen's Test positive Jacek's Test positive Ela test: positive right side / left side Thigh Thrust Test Sacral Thrust Test Assessment and plan: Chronic low back pain secondary to lumbar degenerative disc disease , lumbar spondylosis with facet arthropathy without myelopathy, thoracic DDD Recommendation of R mid thoracic TPIs, 9-12 muscle points. May need additional injections, up to every 2-3 mo, for optimal pain relief. Risks, benefits of procedure discussed and pt verbalized understanding. Denies anticoagulant use or medical history of diabetes. All patient questions answered MAPS reviewed and it was appropriate. I have spent less than 30 minutes on patient care today. Dr Dennison was available by phone for the evaluation of this patient. The time was used to review the medical records including relevant urine studies and Prescription history (MAPs), review of the available imaging, evaluation and examination of the patient, coordination of care with the medical staff and if applicable referring physicians, as well as creation of the medical record PQRS Narrative: Smoking Status Never smoker Hx Alcohol Use (MH) No Home Medications: Ambulatory Orders Atorvastatin Calcium [Lipitor] 20 mg PO HS 09/27/14 Dorzolamide HCl/Timolol Maleat [Dorzolamide-Timolol Eye Drops] 1 drop BOTH EYES BID 09/27/14 Metoprolol Succinate (ER) [Toprol XL] 100 mg PO DAILY 09/27/14 metFORMIN HCL [Metformin HCl ER] 1,500 mg PO AC-SUPPER 09/27/14 Multivitamins, Thera [Multivitamin (formulary)] 1 tab PO DAILY 03/21/15 Celecoxib [CeleBREX] 200 mg PO BID 07/11/21 Latanoprost Ophth [Xalatan 0.005%] 1 drop BOTH EYES DAILY 07/11/21 Levothyroxine Sodium [Synthroid] 88 mcg PO DAILY 07/11/21 traMADol HCl [Ultram] 50 mg PO TID PRN 07/11/21 Exenatide Microspheres [Bydureon Bcise Auto-Injector] 2 mg SQ LATIF 08/23/21 amLODIPine BESYLATE/BENAZEPRIL [Amlodipine-Benazepril 5-10 mg] 1 tab PO BID 08/23/21 Controlled Substance Measures - Controlled Substance Measures Is patient prescribed a controlled substance at discharge?: No
== END ==
LOC: PNWHC3 09:44
PROVIDERS: ATTEND Specialist
DX: M51.36 Other intervertebral disc degeneration, lumbar region (principal); M47.816 Spondylosis without myelopathy or radiculopathy, lumbar region; G89.29 Other chronic pain; M51.34 Other intervertebral disc degeneration, thoracic region; Z91.013 Allergy to seafood
CPT/HCPCS: 99211

== ENCOUNTER → 2022-07-25 | Outpatient (CLI) | payer MEDICARE ==
--- NOTE | 2022-07-25 13:22 | US ---
EXAMINATION TYPE: US pelvis complete transvag DATE OF EXAM: 07/25/2022 COMPARISON: NONE CLINICAL HISTORY: N95.0 post shun bleed. History of uterine prolapse. Patient had bleeding postpessar y insertion and removal. TECHNIQUE: Transvaginal (TV) and Transabdominal (TA) . Transabdominal sonographic images of the pel vis were acquired. Transvaginal sonographic images were medically necessary to better assess the fol lowing anatomy: Uterus Patient has been using pessary device since 2013 Technically difficult study. Patient states she has a prolapse uterus. That would not reinsert pe ssary ring after last cleaning. Patient is experiencing no bladder control and continued to urinate t hroughout exam. Transabdominal ultrasound shows heterogeneous hyperechoic structure posterior to the bladder. No free fluid. Scanning of the adnexa shows no suspicious masses or ovaries. Transvaginal investigation show s curvilinear fluid possible portion of bladder. Suggestion of small size uterus partially imaged. No adnexal masses. IMPRESSION: As above. Markedly suboptimal study. Advise cross-sectional imaging with CT and/or MRI pe lvis to better evaluate and characterize.
== END | disposition home or self-care (01) ==
LOC: RADUSWWP 12:12
PROVIDERS: ATTEND Obstetrics & Gynecology
DX: N95.0 Postmenopausal bleeding (principal)
CPT/HCPCS: 76830; 76856

== ENCOUNTER 2022-08-15 12:02 | Day surgery (SDC) | payer MEDICARE ==
[~2022-08-15 12:02] MED LIST: LACTATED RINGERS 1,000 ML IV SCH; LIDOCAINE 1% (10MG/ML) FOR IV START INTRADERMA PRN
[2022-08-15 12:27] VITALS: RESP 16; TEMP 98.1
[2022-08-15 12:43] LABS: Glucose,Whole Blood 133 mg/dL (70-110)
[2022-08-15] MEDS ORDERED: MIDAZOLAM 2 MG/2 ML VIAL ONE (12:52)
[2022-08-15] MEDS ORDERED: methylPREDNISolone ACETATE 40 MG/ML 1 ML VIAL ONE (12:52)
[2022-08-15] MEDS ORDERED: fentaNYL (PF) 50 MCG/ML 2 ML AMP ONE (12:52)
[2022-08-15] MEDS ORDERED: ROPIVACAINE 5 MG/ML 20 ML AMPULE ONE (12:52)
[2022-08-15] MEDS ORDERED: IV FLUID CONTINUATION 1,000 ML IV ONE (13:04)
--- NOTE | 2022-08-15 13:05 | P.PCN ---
Date of Procedure: 08/15/22 Procedure(s) Performed: Procedure= trigger point injections Right Thoracic paraspinal muscles T4-T9 ( 4 trigger points injected on the right side thoracic paraspinal muscles) Preoperative diagnosis= 1-myofascial pain syndrome Thoracic paraspinal muscles. Postoperative diagnosis=Same as preop Diagnosis . Complication = none Condition= stable Anesthesia= moderate sedation with intravenous Versed 1 mg , and fentanyl 50 micrograms . Sedation start time 1255 sedation end time 1259 Indication for the procedure= patient complaining of mid back pain , examination was positive for multiple trigger point in the Right Thoracic paraspinal muscles ,and patient diagnosed with myofascial pain syndrome, for this reason he was good candidate for trigger pontine injections. Description of the procedure= procedure risk and benefits discussed with the patient, including but not limited, risk of infection and bleeding, and ALLERGIC reaction to the medication and not complete pain relief and patient agreed with the preceding patient taken to the operating room, placed in sitting position or standard monitors applied to the patient then after induction of anesthesia back prepped with chlorhexidine 3 times , then after that each of the trigger point injected with 2 mL of the mixture of ropivacaine 0.5% 8 ML mixed with 40 mg of Depo-Medrol, and 2 mL of the mixture injected after negative aspiration using 25-gauge needle, injection done after negative aspiration and there was no paresthesia during the injection, total of 4 trigger point identified and injected in the right Thoracic paraspinal muscles , patient tolerated the procedure well without any complications
[2022-08-15 13:07] VITALS: BP 131/72
[2022-08-15 13:33] VITALS: PULSE 95
== END 2022-08-15 13:44 | disposition home or self-care (01) ==
LOC: ORPAIN 12:02
PROVIDERS: ATTEND Specialist
DX: M79.18 Myalgia, other site (principal); Z91.013 Allergy to seafood
CPT/HCPCS: 20553; J2250; J1030; J3010; J2795